=== PATIENT | female | born 1965 | race Caucasian/White ===

== ENCOUNTER 2017-10-11 13:18 | Emergency (ER) | payer BC ==
[2017-10-11 13:47] VITALS: BP 136/85
--- NOTE | 2017-10-11 14:08 | UC ---
Cardiac HPI - HPI Summary HPI Summary: 52 y/o female c/o chest pain beginning at 1:30PM- sharp pain radiating into L neck, L shoulder and deep L chest. Denies diaphoretic, clammy, felt like she was going to pass out. Taken here by nurse. h/o iregular heart rate. States on tuesday 3AM had chest pain, deep, under L breast, stabbing, lasting ~ 1 -2 hours, improved after tea and Tums, h/o GERD controlled with diet. Also recent h/o L sided 5mm kidney stone, on flomax, no back pain, urinary symptoms. - History of Current Complaint Chief Complaint: UCChestPain Stated Complaint: CHEST PAIN Time Seen by Provider: 10/11/17 13:49 Hx Obtained From: Patient Hx Last Menstrual Period: current Onset/Duration: Sudden Onset, Lasting Minutes, Still Present - l headache, l shoulder pain Initial Severity: Severe Current Severity: Mild Pain Intensity: 3 - Allergy/Home Medications Allergies/Adverse Reactions: Allergies Allergy/AdvReac Type Severity Reaction Status Date / Time citric acid Allergy Congestion Verified 10/11/17 13:39 lactose Allergy GI Upset Verified 10/11/17 13:39 Penicillins Allergy See Comment Verified 10/11/17 13:39 nuts Allergy Anaphylatic Uncoded 10/11/17 13:39 Shock seasonal Allergy Congestion Uncoded 10/11/17 13:39 Home Medications: Home Medications Ferrous Sulfate 1 tab PO DAILY 10/11/17 [History Confirmed 10/11/17] Multivitamin [Multivitamins] 1 tab PO DAILY 10/11/17 [History Confirmed 10/11/17 ] PMH/Surg Hx/FS Hx/Imm Hx Previously Healthy: No - irregular ht rate, kidney stone - Surgical History Surgical History: Yes Surgery Procedure, Year, and Place: Tubal ligation. vein stripping [place] [facility] [place] [facility] [place] - Social History Alcohol Use: Weekly Alcohol Amount: 1-3WEEK Substance Use Type: None Smoking Status (MU): Never Smoked Tobacco - Immunization History Most Recent Tetanus Shot: unknown Review of Systems Constitutional: Fatigue Cardiovascular: Chest Pain Neurological: Headache, Weakness, Other - dizziness Psychological: Anxious Is Patient Immunocompromised?: No All Other Systems Reviewed And Are Negative: Yes Physical Exam Triage Information Reviewed: Yes Appearance: Well-Appearing, No Pain Distress, Well-Nourished Vital Signs: Initial Vital Signs Temp 99.3 F 10/11/17 13:39 Pulse 88 10/11/17 13:39 Resp 19 10/11/17 13:39 BP 136/85 10/11/17 13:39 Pulse Ox 98 10/11/17 13:39 Vital Signs Reviewed: Yes Eyes: Positive: Conjunctiva Clear Neck: Positive: Supple, Nontender, No Lymphadenopathy Respiratory: Positive: Chest non-tender, Lungs clear, Normal breath sounds, No respiratory distress, No accessory muscle use. Negative: Respiratory distress, Decreased breath sounds, Crackles, Rhonchi, Stridor, Wheezing, Expiration Cardiovascular: Positive: RRR, No Murmur, Pulses Normal - rad, ulnar b/l. Negative: Tachycardia, Bradycardia Neurological Exam: Normal Psychological Exam: Normal Skin Exam: Normal - Assessment/Plan Course Of Treatment: Patient refused ambulance Advised to go to ER for further work up due to symptoms. patient elected to go via car. EKG- NSR, read by Dr. gonzales. ED called, report given to jarad eid. - Differential Diagnoses - Chest Pain Differential Diagnosis/HQI/PQRI: Angina, Aortic Aneurysm, CHF - Clinical Impression Provider Diagnoses: chest pain Discharge - Sign-Out/Discharge Documenting (check all that apply): Discharge - Discharge Plan Condition: Guarded Disposition: HOME Discharge Disposition Comment: Requested patient go to ER for further work up, patient denied ambo Patient Education Materials: Chest Pain (ED) Referrals: Ailyn Mcadams MD [Primary Care Provider] - Additional Instructions: - Please go to ER for further work up regarding your chest pain - Billing Disposition and Condition Condition: GUARDED Disposition: HOME
== END 2017-10-11 14:15 | disposition home or self-care (01) ==
LOC: UCEAST 13:18
DX: R07.89 Other chest pain (principal); R53.83 Other fatigue; R51 Headache; R42 Dizziness and giddiness; F41.9 Anxiety disorder, unspecified; Z87.442 Personal history of urinary calculi; Z88.0 Allergy status to penicillin
CPT/HCPCS: 93005; 99212; G0463

== ENCOUNTER 2017-10-11 14:34 | Emergency (ER) | payer BC ==
[2017-10-11 15:33] LABS: ABS Basophils 0.1 10^3/ul (0-0.2); ABS Eosinophils 0.1 10^3/ul (0-0.6); ABS Lymphocytes 1.2 10^3/ul (1.0-4.8); ABS Monocytes 0.3 10^3/ul (0-0.8); ABS Nucleated RBC 0 10^3/ul; Eosinophil % 2.5 % (0-6); Hematocrit 38 % (35-47); Hemoglobin 12.5 g/dl (12.0-16.0); Lymphocyte % 26.1 % (25-47); Mean Corpuscular HGB Conc 33 g/dl (31-36); Mean Corpuscular Hemoglobin 26 pg (27-31); Mean Corpuscular Volume 79 fL (80-97); Mean Platelet Volume 9 um3 (7.4-10.4); Nucleated Red Blood Cells % 0; Platelet Count 195 10^3/ul (150-450); Red Blood Count 4.83 10^6/ul (4.0-5.4); Red Cell Distribution Width 16 % (10.5-15); White Blood Count 4.7 10^3/ul (3.5-10.8)
[2017-10-11 15:49] LABS: EGFR Non-African American 77.3 (>60)
--- NOTE | 2017-10-11 15:53 | RAD ---
HISTORY: Chest pain COMPARISONS: April 10, 2013 VIEWS: 1: frontal portable view of the chest at 3:46 PM FINDINGS: LINES AND TUBES: None. CARDIOMEDIASTINAL SILHOUETTE: The cardiomediastinal silhouette is normal for portable technique. PLEURA: The costophrenic angles are sharp. No pleural abnormalities are noted. LUNG PARENCHYMA: The lungs are clear. ABDOMEN: The upper abdomen is clear. There is no subphrenic gas. BONES AND SOFT TISSUES: No bone or soft tissue abnormalities are noted. IMPRESSION: NO ACTIVE CARDIOPULMONARY DISEASE.
[2017-10-11] MEDS ORDERED: Nitroglycerin TAB 0.4 MG* 0.4 MG TAB SL ONE (17:24)
[2017-10-11] MEDS ORDERED: Aspirin Low Dose CHEW TAB* 81 MG PO ONE (17:24)
[2017-10-11 20:01] VITALS: BP 141/97
--- NOTE | 2017-10-15 13:42 | ED ---
Radha Jeff Gabriel, scribed for Terry Huff MD on 10/11/17 at 1723 . Complex/Multi-Sys Presentation - HPI Summary HPI Summary: This patient is a 52 year old F presenting to [facility] with a complaint of CP that began 3 days ago but resolved. She is also concerned about the kidney stone she was diagnosed with last week. Additionally at 1350 today she felt a sharp electric pain w/ a near syncopal episode she was seen at for this and had an EKG. They then suggest she come here for blood work. The patient rates the pain 0/10 in severity. Symptoms alleviated spontaneously, she has no symptoms currently. Patient reports dizziness and BOYD. Patient denies ABD pain, fever, cough, and edema. - History Of Current Complaint Chief Complaint: EDGeneral Time Seen by Provider: 10/11/17 17:09 Hx Obtained From: Patient Onset/Duration: Lasting Hours, Resolved Timing: Constant Severity Currently: None Severity Initially: Moderate Associated Signs And Symptoms: Positive: Other - CP, dizziness, near syncope, BOYD - Allergies/Home Medications Allergies/Adverse Reactions: Allergies Allergy/AdvReac Type Severity Reaction Status Date / Time citric acid Allergy Congestion Verified 10/11/17 13:39 lactose Allergy GI Upset Verified 10/11/17 13:39 Penicillins Allergy See Comment Verified 10/11/17 13:39 nuts Allergy Anaphylatic Uncoded 10/11/17 13:39 Shock seasonal Allergy Congestion Uncoded 10/11/17 13:39 PMH/Surg Hx/FS Hx/Imm Hx Endocrine/Hematology History: Reports: Hx Thyroid Disease - HYPO Denies: Hx Diabetes, Hx Systemic Lupus Erythematosus Cardiovascular History: Reports: Hx Hypertension - DIET OR STRESS RELATED, Hx Peripheral Vascular Disease, Other Cardiovascular Problems/Disorders - ARRHYTHMIA WITH LYME DISEASE, HX VARICOSE VEINS Denies: Hx Congestive Heart Failure Respiratory History: Denies: Hx Asthma, Hx Chronic Obstructive Pulmonary Disease (COPD) GI History: Reports: Hx Gastroesophageal Reflux Disease - DIET CONTROLLED Denies: Hx Ulcer History: Reports: Hx Kidney Stones, Hx Renal Disease - LEFT KIDNEY STONES Denies: Hx Dialysis Musculoskeletal History: Reports: Hx Arthritis Denies: Hx Rheumatoid Arthritis Sensory History: Reports: Hx Contacts or Glasses - GLASSES Denies: Hx Hearing Aid Opthamlomology History: Reports: Hx Contacts or Glasses - GLASSES Neurological History: Reports: Hx Migraine - WITH DAIRY, Other Neuro Impairments /Disorders - HX LYME DISEASE Psychiatric History: Reports: Hx Anxiety - HX OF - Cancer History Hx Chemotherapy: No Hx Radiation Therapy: No - Surgical History Surgery Procedure, Year, and Place: Tubal ligation. vein stripping left leg 2001 [facility] [place]. RIGHT LEG VEIN STRIPPING 2015 [facility] [place] Hx Anesthesia Reactions: No Infectious Disease History: No Infectious Disease History: Denies: Hx Hepatitis, Hx Human Immunodeficiency Virus (HIV), Traveled Outside the [place] in Last 30 Days - Family History Known Family History: Positive: Hypertension Negative: Cardiac Disease, Diabetes, Renal Disease, Respiratory Disease, Seizure Disorder, Blood Disorder - Social History Occupation: Employed Full-time - teacher Alcohol Use: Weekly Alcohol Amount: 1-3WEEK Substance Use Type: Reports: None Smoking Status (MU): Never Smoked Tobacco Review of Systems Negative: Fever, Chills Negative: Erythema Negative: Sore Throat Positive: Chest Pain Negative: Shortness Of Breath, Cough Negative: Abdominal Pain, Vomiting, Nausea Negative: dysuria, hematuria Negative: Myalgia, Edema Negative: Rash Neurological: Other - dizziness Positive: Headache, Syncope - near All Other Systems Reviewed And Are Negative: Yes Physical Exam - Summary Physical Exam Summary: Constitutional: Well-developed, Well-nourished, Alert. (-) Distressed Skin: Warm, Dry HENT: Normocephalic; Atraumatic Eyes: Conjunctiva normal Neck: Musculoskeletal ROM normal neck. (-) JVD, (-) Stridor, (-) Tracheal deviation Cardio: Rhythm regular, rate normal, Heart sounds normal; Intact distal pulses; The pedal pulses are 2+ and symmetric. Radial pulses are 2+ and symmetric. (-) Murmur Pulmonary/Chest wall: Effort normal. (-) Respiratory distress, (-) Wheezes, (-) Rales Abd: Soft, (-) Tenderness, (-) Distension, (-) Guarding, (-) Rebound Musculoskeletal: (-) Edema Lymph: (-) Cervical adenopathy Neuro: Alert, Oriented x3 Psych: Mood and affect Normal Triage Information Reviewed: Yes Vital Signs On Initial Exam: Initial Vitals Temp Pulse Resp BP Pulse Ox 99.0 F 90 16 151/91 100 10/11/17 14:44 10/11/17 14:44 10/11/17 14:44 10/11/17 14:44 10/11/17 14:44 Vital Signs Reviewed: Yes Diagnostics - Vital Signs Vital Signs Temp Pulse Resp BP Pulse Ox 10/11/17 16:46 98.8 F 88 16 142/86 100 10/11/17 14:44 99.0 F 90 16 151/91 100 - Laboratory Lab Results: Lab Results 10/11/17 10/11/17 10/11/17 Range/Units 15:23 15:23 15:23 WBC 4.7 (3.5-10.8) 10^3/ul RBC 4.83 (4.0-5.4) 10^6/ul Hgb 12.5 (12.0-16.0) g/dl Hct 38 (35-47) % MCV 79 L (80-97) fL MCH 26 L (27-31) pg MCHC 33 (31-36) g/dl RDW 16 H (10.5-15) % Plt Count 195 (150-450) 10^3/ul MPV 9 (7.4-10.4) um3 Neut % (Auto) 63.1 (38-83) % Lymph % (Auto) 26.1 (25-47) % [place] % (Auto) 6.9 (0-7) % Eos % (Auto) 2.5 (0-6) % Baso % (Auto) 1.4 (0-2) % Absolute Neuts (auto) 3.0 (1.5-7.7) 10^3/ul Absolute Lymphs (auto) 1.2 (1.0-4.8) 10^3/ul Absolute Monos (auto) 0.3 (0-0.8) 10^3/ul Absolute Eos (auto) 0.1 (0-0.6) 10^3/ul Absolute Basos (auto) 0.1 (0-0.2) 10^3/ul Absolute Nucleated RBC 0 10^3/ul Nucleated RBC % 0 Sodium 136 (133-145) mmol/L Potassium 3.9 (3.5-5.0) mmol/L Chloride 105 (101-111) mmol/L Carbon Dioxide 28 (22-32) mmol/L Anion Gap 3 (2-11) mmol/L BUN 10 (6-24) mg/dL Creatinine 0.78 (0.51-0.95) mg/dL Est GFR ( Amer) 99.4 (>60) Est GFR (Non-Af Amer) 77.3 (>60) BUN/Creatinine Ratio 12.8 (8-20) Glucose 97 (70-100) mg/dL Lactic Acid 0.5 (0.5-2.0) mmol/L Calcium 9.8 (8.6-10.3) mg/dL Total Bilirubin 0.40 (0.2-1.0) mg/dL AST 13 (13-39) U/L ALT 10 (7-52) U/L Alkaline Phosphatase 50 (34-104) U/L Troponin I 0.00 (<0.04) ng/mL Total Protein 5.9 L (6.4-8.9) g/dL Albumin 4.0 (3.2-5.2) g/dL Globulin 1.9 L (2-4) g/dL Albumin/Globulin Ratio 2.1 (1-3) Result Diagrams: 10/11/17 15:23 10/11/17 15:23 Lab Statement: Any lab studies that have been ordered have been reviewed, and results considered in the medical decision making process. - Radiology CXR Radiology Interpretation Completed By: Radiologist - NO ACTIVE CARDIOPULMONARY DISEASE. ED physician has reviewed this radiology report. - EKG 1744 Cardiac Rate: NL EKG Rhythm: Sinus Rhythm - at 74 BPM EKG Interpretation: normal ST, no STEMI Re-Evaluation - Re-Evaluation First Eval Re-Evaluation Time: 18:40 Change: Unchanged Comment: I discussed test results and dischagre with patient. Complex Multi-Symp Course/Dx Assessment/Plan: This patient is a 52 year old F presenting to [facility] with a complaint of CP that began 3 days ago but resolved. She is also concerned about the kidney stone she was diagnosed with last week. Additionally at 1350 today she felt a sharp electric pain w/ a near syncopal episode she was seen at for this and had an EKG. They then suggest she come here for blood work. The patient rates the pain 0/10 in severity. Symptoms alleviated spontaneously, she has no symptoms currently. Patient reports dizziness and BOYD. Patient denies ABD pain, fever, cough, and edema. An EKG reveals NSR. CXR reveals, per radiologist, NO ACTIVE CARDIOPULMONARY DISEASE. ED physician has reviewed this radiology report. Patient has atypical CP with radicular characteristics as well as left arm pain, I informed her that angina can have atypical presentation. In the last 3-4 days she has been involved in unusual activity for her like yoga. She understand she needs to return for progressing and worsening symptoms. Test results with no significant abnormalities. In the ED course the patient was given ASA and NTG. Patient will be discharged and follow up from Dr. Mcadams for a stress test. The patient is agreeable with this plan. - Diagnoses Provider Diagnoses: Pain in left arm, Atypical chest pain - Physician Notifications Discussed Care Of Patient With: Ailyn Mcadams Time Discussed With Above Provider: 18:35 Instructed by Provider To: Other - We discussed patient care with Dr. Mcadams and they have agreed to schedule an outpatient stress test. Discharge - Sign-Out/Discharge Documenting (check all that apply): Discharge - Discharge Plan Condition: Good Disposition: HOME Patient Education Materials: Chest Pain (ED), Arm Pain (ED) Referrals: Ailyn Mcadams MD [Primary Care Provider] - 1 Day Additional Instructions: RETURN TO THE EMERGENCY DEPARTMENT FOR CHANGING OR WORSENING SYMPTOMS. The documentation as recorded by the Radha bolden Gabriel accurately reflects the service I personally performed and the decisions made by , Terry Huff MD.
== END 2017-10-11 20:03 | disposition home or self-care (01) ==
LOC: ED 14:34
DX: R07.89 Other chest pain (principal); M79.602 Pain in left arm; E03.9 Hypothyroidism, unspecified; I10 Essential (primary) hypertension; I73.9 Peripheral vascular disease, unspecified; K21.9 Gastro-esophageal reflux disease without esophagitis; Z87.442 Personal history of urinary calculi; G43.909 Migraine, unspecified, not intractable, without status migrainosus; F41.9 Anxiety disorder, unspecified; Z88.0 Allergy status to penicillin
CPT/HCPCS: 36415; 71045; 80053; 83605; 84484; 85025; 85379; 93005; 99283; A9270-GY

== ENCOUNTER 2017-10-19 12:16 | Day surgery (SDC) | payer BC ==
--- NOTE | 2017-10-17 20:55 | HP ---
CC: Dr. Ailyn Mcadams * ADMITTING HISTORY AND PHYSICAL: DATE OF ADMISSION: 10/19/17 ADMITTING DIAGNOSES: 1. Calculus left distal ureter. 2. Complete duplication of left collecting system. PLANNED PROCEDURE: Left ureteroscopy, possible laser and stent insertion. 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 She had previously been treated in 2016 for an obstructing calculus. She was recently evaluated and noted to have a 6-mm calculus in the left distal ureter. She was initially managed conservatively about 2 weeks ago and was started on Flomax 0.4 mg once a day in an effort to try remote passage of the calculus. However, few days after being on the Flomax, she had chest pain and was evaluated in the emergency room that EKG was normal and it was felt that the pain was possibly due to Flomax, which she then stopped with no recurrence of the pain. A followup ultrasound done earlier today reveals a persistent 6 mm calculus at the left ureterovesical junction associated with the possible ureterocele. There is no obstruction and she was given the option of continuing to wait, but since the calculus has been present at least for close to 2 weeks and possibly longer, she is now being brought in for left ureteroscopy, possible laser and stent insertion. PAST MEDICAL HISTORY: Significant for hypothyroidism (paralingual thyroid). MEDICATIONS: On admission: 1. Levothyroxine 0.125 mg daily. 2. Amlodipine 2.5 mg daily. 3. Iron tablets. ALLERGIES: PENICILLIN and CITRIC ACID. PHYSICAL EXAMINATION GENERAL: Reveals a pleasant healthy appearing lady. VITAL SIGNS: Blood pressure is 110/72, pulse 80 per minute, oxygen saturation 99% on room air. LUNGS: Clear bilaterally. CARDIOVASCULAR: Regular rate and rhythm. S1, S2. ABDOMEN: Soft with mild left flank tenderness. 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 Planned procedure is left ureteroscopy, possible laser and stent insertion. [id number]/[facility] #: [id number] [facility]
[~2017-10-19 12:16] MED LIST: Buffered Lidocaine 0.9% SYRIN* 5 ML/SYR SYRINGE INTRADERM ONE; Levofloxacin 500 MG IVPREMIX(* 500 MG/100 ML BAG IVPB ONE
[2017-10-19] MEDS ORDERED: Levofloxacin 500 MG IVPREMIX(* 500 MG/100 ML BAG IVPB ONE (12:24)
[2017-10-19] MEDS ORDERED: Iohexol 180 (CONTRAST) 10 ML SDV IV ONE (13:46)
[2017-10-19] MEDS ORDERED: fentaNYL* 50 MCG/ML 2 ML VIAL (100 MCG VIAL) ONE ×2 (13:56→16:17)
[2017-10-19] MEDS ORDERED: Propofol* 10 MG/ML 20 ML BTL IV PUSH ONE (13:56)
[2017-10-19] MEDS ORDERED: Lidocaine 2% PF * 5 ML VIAL ONE (13:56)
[2017-10-19] MEDS ORDERED: oxyCODONE TAB* 5 MG TAB PO PRN (14:13)
[2017-10-19] MEDS ORDERED: Acetaminophen TAB* 325 MG PO PRN (14:13)
[2017-10-19] MEDS ORDERED: Naloxone* 0.4 MG/ML 1 ML VIAL IV PRN (14:13)
[2017-10-19] MEDS ORDERED: fentaNYL* 50 MCG/ML 2 ML VIAL (100 MCG VIAL) IV PRN (14:13)
[2017-10-19] MEDS ORDERED: Furosemide IV* 10 MG/ML 2 ML VIAL (20 MG) ONE (14:28)
[2017-10-19] MEDS ORDERED: Acetaminophen TAB* 325 MG ONE (16:17)
[2017-10-19 16:46] VITALS: BP 140/100
--- NOTE | 2017-10-20 14:59 | OP ---
CC: Ailyn Mcadams MD * DATE OF OPERATION: 10/19/17 - [facility] DATE OF : 63 SURGEON: Tao Peters MD ANESTHESIOLOGIST: Dr. Reaves. ANESTHESIA: General. PRE-OP DIAGNOSES: 1. Calculus left ureter. 2. Complete duplication of left collecting system. POST-OP DIAGNOSES: 1. Calculus left ureter. 2. Complete duplication of left collecting system. 3. 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 SURGICAL PROCEDURE: 1. Cystoscopy. 2. Left retrograde pyelogram. 3. Incision of left ureterocele. 4. Left ureteroscopy and stone extraction and left stent insertion. COMPLICATIONS: None. POSTOPERATIVE CONDITION: Stable. STENT USED: A 6-Urdu stent left ureter. OPERATIVE FINDINGS: 1. Complete duplication left collecting system. 2. Ureterocele involving upper pole collecting system (draining into lower, more medial orifice). 3. Approximately 6 mm calculus, distal left ureter inside the ureterocele. INDICATIONS: Elizabeth Chavarria is a 52-year-old lady with a history of recurrent renal calculi who has a complete left duplication and was noted to have a persistent calculus in the left distal ureter and is now being brought in for management of the same. DESCRIPTION OF PROCEDURE: After induction of general anesthesia, the patient was placed in dorsal lithotomy position. Sequential compression devices were in place and functioning. Initial cystoscopy revealed a single orifice on the right side and 2 orifices on the left side with the more medial and lower orifice (which drains the upper pole system) involved with a simple ureterocele. A guidewire was introduced through the small opening in the ureterocele and advanced into the proximal collecting system. Next, using internal urethrotome, the ureterocele was carefully incised and once it was done , the ureteroscope could be easily introduced and the calculus was found and engaged and removed. The calculus measured about 6 mm in size and was partially fragmented during removal and all of the fragments were sent for analysis. The cut edges of the ureterocele were carefully cauterized using the electrocautery. Once this was done, a 6-Urdu stent was introduced and positioned under fluoroscopy with good proximal and distal positioning obtained. The patient tolerated the procedure satisfactorily and was transferred back to the recovery area in stable condition. [id number]/[facility] #: [id number] [facility]
--- NOTE | 2017-11-03 09:44 | RAD ---
INDICATION: Left ureteral calculus, stent placement COMPARISONS: None relevant TECHNIQUE: Fluoroscopy was provided for a retrograde pyelogram and stent placement. Total fluoroscopy time is: 12 seconds FINDINGS: Spot images demonstrate contrast within the renal collecting system. A ureteral stent is noted. IMPRESSION: FLUOROSCOPY WAS PROVIDED FOR A RETROGRADE PYELOGRAM AND STENT PLACEMENT CPT II Codes: 6045F
== END 2017-10-19 16:53 | disposition home or self-care (01) ==
LOC: OR 12:16
PROVIDERS: ATTEND Urology
DX: N20.1 Calculus of ureter (principal); N28.89 Other specified disorders of kidney and ureter; Z87.442 Personal history of urinary calculi; E03.9 Hypothyroidism, unspecified; Q62.5 Duplication of ureter; I10 Essential (primary) hypertension; K21.9 Gastro-esophageal reflux disease without esophagitis
CPT/HCPCS: 74420; 82365; 88300; A9270-GY; C1876; J1940; J1956; J2704; J3010

== ENCOUNTER 2018-05-17 15:43 | Emergency (ER) | payer BC ==
[2018-05-17 15:51] VITALS: BP 152/109
--- NOTE | 2018-05-17 17:29 | UC ---
Respiratory Complaint HPI - HPI Summary HPI Summary: 3 DAYS OF COUGH, SORE THROAT, FATIGUE, OVERALL MALAISE WITH CHEST AND SINUS CONGESTION. NO FEVER, NAUSEA/VOMITING. WANTS TO BE CHECKED FOR FLU. - History of Current Complaint Chief Complaint: UCRespiratory Stated Complaint: flu symptoms Time Seen by Provider: 05/17/18 17:10 Hx Obtained From: Patient Hx Last Menstrual Period: now Onset/Duration: Gradual Onset, Lasting Days, Still Present Timing: Constant Severity Initially: Moderate Severity Currently: Moderate Pain Intensity: 2 Pain Scale Used: 0-10 Numeric Character: Cough: Nonproductive Aggravating Factors: Other Alleviating Factors: Nothing Associated Signs And Symptoms: Positive: Chills, URI, Nasal Congestion, Sinus Discomfort. Negative: Dyspnea, Fever - Allergies/Home Medications Allergies/Adverse Reactions: Allergies Allergy/AdvReac Type Severity Reaction Status Date / Time mold Allergy Severe Itching Verified 05/17/18 15:51 citric acid Allergy Intermediate Congestion Verified 05/17/18 15:51 lactose Allergy Intermediate GI Upset, Verified 05/17/18 15:51 stuffiness Penicillins Allergy Intermediate See Comment Verified 05/17/18 15:51 nuts Allergy Severe Anaphylatic Uncoded 05/17/18 15:51 Shock, itching on top of head seasonal Allergy Intermediate Congestion, Uncoded 05/17/18 15:51 stuffiness PMH/Surg Hx/FS Hx/Imm Hx Endocrine History: Hypothyroidism Cardiovascular History: Hypertension - Surgical History Surgical History: Yes Surgery Procedure, Year, and Place: Tubal ligation. vein stripping left leg 2001 [facility] [place]. RIGHT LEG VEIN STRIPPING 2015 [facility] [place] - Social History Alcohol Use: Occasionally Alcohol Amount: 1-3WEEK Substance Use Type: None Smoking Status (MU): Never Smoked Tobacco - Immunization History Most Recent Tetanus Shot: unknown Review of Systems Constitutional: Chills, Fatigue ENT: Sore Throat, Nasal Discharge Respiratory: Cough Cardiovascular: Negative Gastrointestinal: Negative Genitourinary: Negative Musculoskeletal: Arthralgia, Myalgia Neurological: Headache All Other Systems Reviewed And Are Negative: Yes Physical Exam Triage Information Reviewed: Yes Appearance: No Pain Distress, Well-Nourished, Ill-Appearing - MILD Vital Signs: Initial Vital Signs Temp 97.7 F 05/17/18 15:47 Pulse 86 05/17/18 15:47 Resp 18 05/17/18 15:47 BP 152/109 05/17/18 15:47 Pulse Ox 99 05/17/18 15:47 Laboratory Tests 05/17/18 16:53 Influenza A (Rapid) Negative Influenza B (Rapid) Negative Eyes: Positive: Conjunctiva Clear ENT: Positive: Hearing grossly normal, Pharynx normal, TMs normal Neck: Positive: Supple, Nontender, No Lymphadenopathy Respiratory Exam: Normal Cardiovascular Exam: Normal Abdomen Description: Positive: Soft Musculoskeletal: Positive: No Edema Neurological: Positive: Alert Psychological: Positive: Age Appropriate Behavior Skin: Negative: rashes UC Diagnostic Evaluation - Laboratory O2 Sat by Pulse Oximetry: 99 Respiratory Course/Dx - Differential Dx/Diagnosis Provider Diagnoses: ACUTE URI Discharge - Sign-Out/Discharge Documenting (check all that apply): Patient Departure All imaging exams completed and their final reports reviewed: No Studies - Discharge Plan Condition: Stable Disposition: HOME Patient Education Materials: Upper Respiratory Infection (ED) Referrals: Ailyn Mcadams MD [Primary Care Provider] - If Needed Additional Instructions: YOUR SYMPTOMS ARE LIKELY VIRALLY MEDIATED AND SHOULD RESOLVE ON THEIR OWN WITH TIME. NO INDICATION FOR ANTIBIOTICS AT PRESENT. REST, HYDRATE, OTC MEDS NEEDED. SEEK FOLLOW-UP IF YOU ARE NOT IMPROVING OVER THE NEXT 1-2 WEEKS. USE OTC AFRIN FOR NASAL CONGESTION. 2 SPRAYS IN EACH NOSTRIL TWICE DAILY NEEDED. DO NOT USE FOR MORE THAN 3-4 DAYS IN A ROW TO PREVENT DEVELOPING REBOUND CONGESTION. - Billing Disposition and Condition Condition: STABLE Disposition: Home
== END 2018-05-17 17:33 | disposition home or self-care (01) ==
LOC: UCEAST 15:43
DX: J06.9 Acute upper respiratory infection, unspecified (principal); Z88.0 Allergy status to penicillin
CPT/HCPCS: 99211; G0463

== ENCOUNTER 2020-12-22 11:57 | Observation (INO) ==
[2020-12-22 12:51] LABS: ABS Basophils 0.1 10^3/ul (0-0.2); ABS Eosinophils 0.1 10^3/ul (0-0.6); ABS Lymphocytes 1.2 10^3/ul (1.0-4.8); ABS Monocytes 0.5 10^3/ul (0-0.8); ABS Neutrophils 4.7 10^3/ul (1.5-7.7); Hematocrit 44 % (35-47); Hemoglobin 15.1 g/dL (12.0-16.0); Lymphocyte % 18.1 %; Mean Corpuscular HGB Conc 34 g/dL (31-36); Mean Corpuscular Hemoglobin 29 pg (27-31); Mean Corpuscular Volume 85 fL (80-97); Mean Platelet Volume 9.6 fL (7.4-10.4); Platelet Count 171 10^3/uL (150-450); Red Blood Count 5.17 10^6 /uL (3.70-4.87); Red Cell Distribution Width 14 % (10-15); White Blood Count 6.5 10^3/uL (3.5-10.8)
[2020-12-22 13:09] LABS: Albumin 4.2 g/dL (3.2-5.2); Albumin/Globulin Ratio 2.1 (1-3); EGFR African American 88.5 (>60); EGFR Non-African American 73.1 (>60); Total Bilirubin 0.5 mg/dL (0.2-1.0); Total Protein 6.2 g/dL (6.4-8.9)
[2020-12-22 13:17] LABS: INR 0.93 (0.82-1.09)
[2020-12-22 15:10] LABS: TSH Ultra Thyroid Stim Horm 1.15 mcIU/mL (0.34-5.60)
[2020-12-23 12:10] VITALS: BP 124/94
[2020-12-23] MEDS ORDERED: diPHENhydraMINE 25 mg TAB ONE (13:27)
== END 2020-12-23 14:32 | disposition home or self-care (01) ==
LOC: ED 11:57 → MEDTELE 11:57
PROVIDERS: ADMIT Hospitalist; ATTEND Internal Medicine